=== PATIENT | male | born 1965 | race Caucasian/White ===

== ENCOUNTER 2024-04-18 20:19 | Observation (INO) ==
[2024-04-18 20:53] LABS: Appearance Urine Turbid (Clear)
[2024-04-18 20:56] LABS: Specific Gravity Urine 1.018 (1.000-1.030)
[2024-04-18 21:11] LABS: Bacteria Urine None Seen (None Seen); Epithelial Cell Urine 0-2 /hpf (0-2); RBC Urine >20 /hpf (0-2); WBC Urine 0-5 /hpf (0-5)
[2024-04-18 21:38] LABS: Albumin Globulin Ratio 1.9 (0.9-2); BUN Creatinine Ratio 20.6 (10-20); Calcium 9.7 mg/dl (8.6-10.3); Creatinine Clr Calc Pharmacy 93.9 ml/min; Globulin 2.6 gm/dl (2.5-4.0); Potassium 3.8 mmol/L (3.5-5.1); Total Protein 7.6 gm/dl (6.0-8.3)
[2024-04-18 21:56] LABS: Basophils # (auto) 0.03 K/uL (0.00-0.20); Basophils % (auto) 0.3 %; Eosinophils # (auto) 0.16 K/uL (0.00-0.50); Eosinophils % (auto) 1.8 %; Hematocrit (blood only) 43.9 % (42.0-52.0); Hemoglobin 15.6 g/dl (14.0-18.0); Immature Granulocytes # (auto) 0.03 K/uL (0.01-0.20); Immature Granulocytes % (auto) 0.3 %; Lymphocytes # (auto) 2.53 K/uL (1.20-3.40); Mean Corpuscular Hemoglobin 31.1 pg (25.0-34.0); Mean Corpuscular Hgb Conc 35.5 g/dL (32.0-36.0); Mean Corpuscular Volume 87.6 fL (80.0-100.0); Mean Platelet Volume 9.3 fL (9.4-12.4); Monocytes # (auto) 0.77 K/uL (0.11-0.59); Monocytes % (auto) 8.8 %; Neutrophils # (auto) 5.19 K/uL (1.40-6.50); Neutrophils % (auto) 59.8 %; Platelet Count 204 K/uL (130-400); RDW Coefficient of Variation 12.4 % (11.5-14.5); RDW Standard Deviation 38.8 fL (36.4-46.3); Red Blood Count 5.01 M/uL (4.70-6.10); White Blood Count 8.71 K/ul (4.8-10.8)
[2024-04-18] MEDS: SODIUM CHLORIDE 0.9% 1,000 ML IV ONE (22:35)
[2024-04-18 22:45] LABS: Partial Thromboplastin Ratio 0.9; Partial Thromboplastin Time 25 Seconds (21-31); Prothrombin Time 10.9 Seconds (9.0-12.0)
[2024-04-18] MEDS: OPTIRAY 320 100ml IV ONE (22:51)
--- NOTE | 2024-04-18 23:58 | Emergency Department Note ---
History of Present Illness General Chief complaint: Hematuria Stated complaint: hematuria Time Seen by Provider: 04/18/24 21:26 History of Present Illness Maximum Pain Intensity: 2 This 58-year-old male presents ER complaining of intermittent hematuria for the past few days. He has some lower abdominal discomfort. Patient has chest pain, dyspnea, flank pain, trauma, bruising or any other medical complaints. He had a stent placed 5 weeks ago at [place]. Home Medications Medication Instructions Recorded Confirmed Type aspirin 81 mg chewable tablet 81 mg PO DAILY 04/19/24 04/19/24 History atorvastatin 40 mg tablet 40 mg PO HS 04/19/24 04/19/24 History losartan 25 mg tablet 25 mg PO DAILY 04/19/24 04/19/24 History metoprolol succinate 50 mg 50 mg PO DAILY 04/19/24 04/19/24 History tablet,extended release 24 hr nitroglycerin 0.4 mg sublingual 0.4 mg sublingual UD PRN Chest Pain 04/19/24 04/19/24 History tablet ticagrelor 90 mg tablet (Brilinta) 90 mg PO BID 04/19/24 04/19/24 History Allergies Allergy/AdvReac Type Severity Reaction Status Date / Time No Known Allergies Allergy Unverified 10/21/19 09:55 Past Med/Surg History Problem List (Updated 04/19/24 @ 02:35 by Florina Ward PA-C) Hematuria (Acute) Mass of bladder (Acute) No significant past medical history Social History Smoking Status: Former smoker Preferred Language: Vietnamese Feels Safe at Home: Yes Review of Systems A total of 10 systems reviewed and were otherwise negative Physical Exam Vital Signs Vital Signs - 24 hr 04/18/24 20:22 04/18/24 22:32 04/18/24 22:33 Temperature 36.5 C Temperature Source Temporal Artery Scan Pulse Rate 82 Pulse Rate [Finger] 69 Respiratory Rate 16 16 Respiratory Effort / Characteristics Respiratory Depth Normal Respiratory Pattern Blood Pressure 163/97 H Blood Pressure [Right Arm] 133/87 Blood Pressure Mean 119 Blood Pressure Mean [Right Arm] 102 Pulse Oximetry 97 96 96 Oxygen Delivery Method Room Air Room Air Room Air Sepsis Recent Fever Within 48 Hours No Sepsis New/Unexplained Change in Mental Status No Sepsis Action Taken by Nursing No Action Required 04/18/24 23:00 04/19/24 00:00 04/19/24 01:00 Temperature Temperature Source Pulse Rate Pulse Rate [Finger] 60 55 L 58 L Respiratory Rate 16 18 18 Respiratory Effort / Characteristics Non-Labored Non-Labored Non-Labored Respiratory Depth Normal Normal Normal Respiratory Pattern Regular Regular Regular Blood Pressure Blood Pressure [Right Arm] 125/81 113/83 104/75 Blood Pressure Mean Blood Pressure Mean [Right Arm] 95 93 84 Pulse Oximetry 98 98 94 Oxygen Delivery Method Room Air Room Air Room Air Sepsis Recent Fever Within 48 Hours Sepsis New/Unexplained Change in Mental Status Sepsis Action Taken by Nursing 04/19/24 02:00 Temperature Temperature Source Pulse Rate Pulse Rate [Finger] 61 Respiratory Rate 16 Respiratory Effort / Characteristics Non-Labored Respiratory Depth Normal Respiratory Pattern Regular Blood Pressure Blood Pressure [Right Arm] 127/87 Blood Pressure Mean Blood Pressure Mean [Right Arm] 100 Pulse Oximetry 98 Oxygen Delivery Method Room Air Sepsis Recent Fever Within 48 Hours Sepsis New/Unexplained Change in Mental Status Sepsis Action Taken by Nursing VITALS: Vitals are noted on the nurse's note and reviewed by myself. Vital signs stable. GENERAL: Pleasant gentleman, in no acute distress, nondiaphoretic, well- developed well-nourished. SKIN: Capillary reflex less than 2 seconds. HEENT: Normocephalic. PERRLA. EOMI. Nares patent. Mucous membranes moist. Neck is supple without nuchal rigidity. HEART: Regular rate and rhythm LUNGS: Clear to auscultation bilaterally without wheezes, rales or rhonchi. No retractions or accessory muscle use. ABDOMEN: Positive bowel sounds x 4. Normal tympanic percussion. Soft, minimally tender suprapubic region, without masses or organomegaly. Greer sign negative. No guarding or rebound tenderness. no CVA tenderness MUSCULOSKELETAL: No gross musculoskeletal defects. NEURO: Patient was alert and oriented to person place and time. No focal neurological deficits. Course Administered Medications Discontinued Medications Sodium Chloride (Nss) 1,000 mls @ 999 mls/hr IV .Q1H1M ONE Stop: 04/18/24 22:47 Last Infusion: 04/19/24 00:06 Dose: Infused Documented By: Admin: 04/18/24 22:35 Dose: 999 mls/hr Documented By: UMESH Ioversol (Optiray 320 100ml) 100 ml IV ONCE ONE Stop: 04/18/24 22:51 Last Admin: 04/18/24 22:51 Dose: 93 ml Documented By: FATIMAH Medical Decision Making Medical Records Attestation: I reviewed the patient's medical records. Home Medications Current Medication List: was personally reviewed by me Laboratory Data Attestation: I reviewed the patient's lab results. 04/18/24 20:47 04/18/24 20:47 Lab Results 04/18/24 04/18/24 Range/Units 20:41 20:47 WBC 8.71 (4.8-10.8) K/ul RBC 5.01 (4.70-6.10) M/uL Hgb 15.6 (14.0-18.0) g/dl Hct 43.9 (42.0-52.0) % MCV 87.6 (80.0-100.0) fL MCH 31.1 (25.0-34.0) pg MCHC 35.5 (32.0-36.0) g/dL RDW Std Deviation 38.8 (36.4-46.3) fL RDW Coeff of Sarthak 12.4 (11.5-14.5) % Plt Count 204 (130-400) K/uL MPV 9.3 L (9.4-12.4) fL Immature Gran % (Auto) 0.3 % Neut % (Auto) 59.8 % Lymph % (Auto) 29.0 % [place] % (Auto) 8.8 % Eos % (Auto) 1.8 % Baso % (Auto) 0.3 % Neut # (Auto) 5.19 (1.40-6.50) K/uL Lymph # (Auto) 2.53 (1.20-3.40) K/uL [place] # (Auto) 0.77 H (0.11-0.59) K/uL Eos # (Auto) 0.16 (0.00-0.50) K/uL Baso # (Auto) 0.03 (0.00-0.20) K/uL Immature Gran # (Auto) 0.03 (0.01-0.20) K/uL PT 10.9 (9.0-12.0) Seconds INR 1.0 (0.9-1.1) APTT 25 (21-31) Seconds PTT Ratio 0.9 Sodium 139 (136-145) mmol/L Potassium 3.8 (3.5-5.1) mmol/L Chloride 106 (98-107) mmol/L Carbon Dioxide 23 (21-32) mmol/L Anion Gap 10 (3-11) BUN 20 (6-23) mg/dl Creatinine 0.97 (0.6-1.4) mg/dl Est Cr Clr Drug Dosing 93.9 ml/min eGFR 91.05 BUN/Creatinine Ratio 20.6 H (10-20) Glucose 98 (70-99(Fasting)) mg/dl Calcium 9.7 (8.6-10.3) mg/dl Total Bilirubin 1.0 (0.2-1.0) mg/dl AST 43 H (13-39) U/L ALT 71 H (7-52) U/L Alkaline Phosphatase 58 (34-104) U/L Total Creatine Kinase 393 H (30-223) U/L Total Protein 7.6 (6.0-8.3) gm/dl Albumin 5.0 (3.4-5.0) gm/dl Globulin 2.6 (2.5-4.0) gm/dl Albumin/Globulin Ratio 1.9 (0.9-2) Lipase 10 L (11-82) U/L Urine Color See Comment Urine Appearance Turbid A (Clear) Urine pH Not Reportable Ur Specific [place] 1.018 (1.000-1.030) Urine Protein Not Reportable Urine Glucose (UA) Not Reportable Urine Ketones Not Reportable Urine Blood Not Reportable Urine Nitrite Not Reportable Urine Bilirubin Not Reportable Urine Urobilinogen Not Reportable Ur Leukocyte Esterase Not Reportable Urine RBC >20 H (0-2) /hpf Urine WBC 0-5 (0-5) /hpf Ur Epithelial Cells 0-2 (0-2) /hpf Urine Bacteria None Seen (None Seen) Imaging Data Attestation: I personally reviewed and interpreted this imaging study as follows: Radiologist's Impression: Abdomen/Pelvis CT 04/18/24 21:47 Exam(s): CT ABDOMEN + PELVIS With Contrast IV Amt: 93 ML OPTIRAY 320 EXAM: CT Abdomen and Pelvis With Intravenous Contrast CLINICAL HISTORY: Reason for exam: lower abd pain, hematuria. TECHNIQUE: Axial computed tomography images of the abdomen and pelvis with intravenous contrast. CTDI is 25.29 mGy and DLP is 1304.69 mGy-cm. Automated exposure control was utilized for the study. A dose lowering technique was utilized adhering to the principles of ALARA. CONTRAST: Patient received 93 ML OPTIRAY 320 of IV contrast COMPARISON: No relevant prior studies available. FINDINGS: Lung bases: Unremarkable. No mass. No consolidation. ABDOMEN: Liver: Unremarkable. No mass. Gallbladder and bile ducts: Unremarkable. No calcified stones. No ductal dilation. Pancreas: Unremarkable. No mass. No ductal dilation. Spleen: Unremarkable. No splenomegaly. Adrenals: Unremarkable. No mass. Kidneys and ureters: Unremarkable. No solid mass. No hydronephrosis. Stomach and bowel: Unremarkable. No obstruction. No mucosal thickening. PELVIS: Appendix: The appendix is normal. Bowel loops are nondilated. No acute inflammatory changes are seen involving the bowel. Bladder: There is an approximately 2.9 cm soft tissue density in the right posterior lateral urinary bladder abutting the wall. Reproductive: Unremarkable as visualized. ABDOMEN and PELVIS: Intraperitoneal space: Unremarkable. No free air. No significant fluid collection. Bones/joints: Mild degenerative changes in the spine. No acute fracture or subluxation is seen. Soft tissues: Unremarkable. Vasculature: Unremarkable. No abdominal aortic aneurysm. Lymph nodes: Unremarkable. No enlarged lymph nodes. IMPRESSION: 1. There is an approximately 2.9 cm soft tissue density in the right posterior lateral urinary bladder abutting the wall. This is suspicious for neoplasm but is not well evaluated on this single phase image. Consider referral for cystoscopy. 2. The appendix is normal. Bowel loops are nondilated. No acute inflammatory changes are seen involving the bowel. Electronically signed by: Robin Dunham MD 04/19/24 01:55 AM [facility] Narrative Prior records/ancillary studies reviewed and summarized above. Nursing notes reviewed. Additional history obtained from family. The patient's history was concerning for hematuria and lower abdominal cramping. Differential diagnosis: Etiologies such as kidney stone, bladder polyp, mass, metabolic, infection, hypo/hyperglycemia, electrolyte abnormalities, cardiac sources, intracerebral event, toxicologic, neurologic, as well as others were entertained. Physical examination: As above. ER treatment provided: IV Lock An order was placed for continuous cardiac monitoring. The monitor shows a rate of 60-100 with a sinus rhythm per my interpretation. IV fluids On reassessment the patient felt better. Diagnostics interpretation by me: The labs Independently Interpreted by myself revealed no worrisome leukocytosis, stable H&H, normal coags, hematuria without signs of infection Imaging studies: Imaging was reviewed and read by radiology as above Consultation: A consultation was placed with the hospitalist. The case was discussed and diagnostics were reviewed. The patient was evaluated in the ER for further treatment. Exam and history seem consistent with hematuria with a new bladder mass. Medicine was consulted case discussed. He will be evaluated for possible admission. By the evaluation outlined above emergent etiologies such as infection, electrolyte abnormalities, cardiac sources, intracerebral event, toxologic, neurologic, abnormalities blood glucose, metabolic, as well as others were deemed relatively unlikely. The pt informed about the findings as listed above. All questions were answered and pleased with the treatment. The chart was completed utilizing Py[employer] Speech voice recognition software. Grammatical errors, random word insertions, pronoun errors, and incomplete sentences are an occassional consequence of this system due to software limitations, ambient noise, and hardware issues. Any formal questions or concerns about the content, text, or information contained within the body of this dictation should be directly addressed to the physician family medicine physician assistant for clarification. Impression & Plan Mass of bladder, Hematuria Discharge Plan Visit Data Chief Complaint: Hematuria Stated Complaint: hematuria ED Provider: Deb Ahn ED Midlevel Provider: Florina Ward Discharge Problem: Mass of bladder, Hematuria Patient Disposition: Being Evaluated by Hospitalist Condition: Good Forms Stand Alone Forms: My [facility] [employer] Prescriptions Prescriptions: No Action atorvastatin 40 mg tablet 40 mg PO HS metoprolol succinate 50 mg tablet extended release 24 hr 50 mg PO DAILY losartan 25 mg tablet 25 mg PO DAILY Brilinta 90 mg tablet 90 mg PO BID nitroglycerin 0.4 mg tablet, sublingual 0.4 mg sublingual UD PRN (Reason: Chest Pain) aspirin 81 mg tablet,chewable 81 mg PO DAILY Referrals Referrals: PCP,NO [Primary Care Provider] -
--- OUTSIDE RECORDS SUMMARY | 2024-04-19 | External Medical Summary | Continuity of Care Document ---
Author Name Unknown Organization [facility] [address] [place] [id number] Encounter PS FINNBR [id number] Date(s): 03/13/24 - 03/13/24 [facility] [address] [facility] [address], [address], [address] [place] [address] [phone] Encounter Diagnosis Coronary artery disease(Discharge Diagnosis) - 03/13/24 Hyperlipidemia(Discharge Diagnosis) - 03/13/24 Hypertension(Discharge Diagnosis) - 03/13/24 S/P right coronary artery (RCA) stent placement(Discharge Diagnosis) - 03/13/24 Smoker(Discharge Diagnosis) - 03/13/24 Body mass index [BMI] 31.0-31.9, adult(Discharge Diagnosis) - 03/13/24 Discharge Disposition: Home or Self Care Attending Physician: JUDY Warner Allison E Referring Physician: NORMAN Key Nathan T Allergies, Adverse Reactions, Alerts No Known Allergies Assessment and Plan Extracted from: Title:Cardiology Office Visit Note Author:JUDY Mercado Allison E Date:03/13/24 1.Coronary artery disease 2.Hyperlipidemia 3.Hypertension 4.S/P right coronary artery (RCA) stent placement 5.Smoker Mr. Higgins is overall recovering well after his recent RI. He has not had any recurrent concerning anginal symptoms. We reviewed the events of his hospitalization and medication regimen. He remains on DAPT with aspirin and ticagrelor for 1 full year after PCI. We reviewed his LDL goal of <70 and the importance of atorvastatin for cholesterol management and plaque stabilization. His blood pressure is at goal on losartan and metoprolol succinate. He is having a f/u BMP in the coming days near his home. We discussed lifestyle modifications including smoking cessation, diet and exercise. He has quit smoking thus far. 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 He wishes to have this done at our [place] location. I will call him with the results of this and can complete any necessary paperwork. 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 Going forward, he will follow up in 4-5 months time to establish care at our [place] location but will call with questions or concerns in the interim. I spent35 minutes of preparation, performing a medically appropriate exam, counseling/educating the patient/family, ordering medications/tests/procedures, independently interpreting results and coordinating care on the day of this encounter. 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, Pharmacy: [id number] Start Date: 03/13/24 Stop Date: 03/08/25 Status: Ordered losartan 25 mg oral tablet Start: 03/13/24 4:08:00 PM EST, 1 tab, PO, Daily, Disp# 90 tab, Refills: 3, Pharmacy: [id number] Start Date: 03/13/24 Stop Date: 03/08/25 Status: Ordered metoprolol succinate 50 mg oral tablet, extended release Start: 03/13/24 4:08:00 PM EST, 1 tab, PO, Daily, Disp# 90 tab, Refills: 3, Pharmacy: [id number] Start Date: 03/13/24 Stop Date: 03/08/25 Status: Ordered nitroglycerin 0.4 mg sublingual tablet Start: 03/08/24 7:06:00 AM EST, 1 tab, SL, q5min, Disp# 25 tab, Refills: 3, If chest pain not relieved in 5 minutes after first dose, seek immediate medical attention, PRN: as needed for chest pain, Pharmacy: [facility] Start Date: 03/08/24 Status: Ordered Mental Status 03/13/24 Barriers to Learning one year None evide nt, Vision impairment Mandatory Health Literacy Documentation Yes Health Literacy Communication Barriers R tiny Primary Language Norwegian Problem List Condition Confirmation Course Effective Dates Status H ealth Status Informant Coronary artery disease Confirmed Active S/P right coronary artery (RCA) stent placement Confirmed Active Hyperlipidemia Confirmed Active Hypertension Confirmed Active Smoker Confirmed Active Diagnosis Diagnosis Type Effective Dates Health Status Clinical Service Informant Coronary artery disease Discharge Diagnosis 03/13/24 Non-Specified Hypertension Discharge Diagnosis 03/13/24 Non-Specified Body mass index [BMI] 31.0-31.9, adult Discharge Diagnosis 03/13/24 Non-Specified Hyperlipidemia Discharge Diagnosis 03/13/24 Non-Specified Smoker Discharge Diagnosis 03/13/24 Non-Specified S/P right coronary artery (RCA) stent placement Discharge Diagnosis 03/13/24 Non-Specified Procedures Procedure Date Related Diagnosis Body Site Status Stented coronary artery C ompleted Vital Signs Most recent to oldest [Reference Range]: 1 Height 173 cm (03/13/24 3:51 PM) Patient Weight 95.4 kg (03/13/24 3:51 PM) Body Mass Index 31.88 kg/m2 (03/13/24 3:51 PM) Temperature [36.5-37.9 DegC] 35.9 DegC *LOW* (03/13/24 3:51 PM) Heart Rate 78 bpm (03/13/24 3:51 PM) Blood Pressure 122/80mmHg (03/13/24 3:51 PM) BP Location # 1 Left Arm, Manual (03/13/24 3:51 PM) Social History Social History Type Response Smoking Status Former Smoker, quit in last 30 days Sex Sex Representation Male (finding) Cardiology Outpatient Note * JUDY Warner Allison E: MODIFY, PERFORM Event Display: Cardiology Outpt Note Authored Date: [id number] Referring Provider NORMAN Key, Damien Kaplan Chief Complaint Follow up after stent. History of Present Illness Mr. Higgins is a 58-year-old male with past medical history of tobacco abuse who presented to the [facility] ED on 03/04/2024 due to complaints of left arm pain and radiating chest pain. EKGdid not show any acute changes but troponins were found to be elevated. TTE revealed normal LV function with an EF 55-59%. He was started on a heparin drip and transported to [facility] on 03/06/2024for further management. He was taken for coronary angiography on 03/07/2024 which revealed a 100% RPDA lesion in which 1 drug-eluting stent was placed. There was nonobstructive CAD in the other coronaries. He was started on Aspirin and ticagrelor for DAPT as well as atorvastatin, losartan, and met oprolol. He was discharged in stable condition on 03/08/2024. At today's visit, Mr. Higgins reports he is overall doing well. He denies recurrent arm or chest pain. He has not had any tobacco since discharge. He is tolerating his new medications without adverse effects. Review of Systems Denies chest pain/pressure, palpitations, dizziness/lightheadedness, shortness of breath, dyspnea on exertion, orthopnea, increased abdominal girth, LE edema, or hematuria/melena. All other systemsnegative unless otherwise specified. Physical Exam Vitals & Measurements T:35.9C HR:78(Monitored) BP:122/80 SpO2:99% HT:173cm WT:95.400kg(Dosing) WT:95.4kg BMI:31.88 BMI:31.88 kg/m2 He is pleasant, conversive and presents in no acute distress.He is alert and oriented x 3. His sclera were anicteric.Neckwithout JVD.He had no carotid bruits.Heart rate regular withS1 and S2 present, with no murmurs/rubs/gallops. Lungs were clear to auscultation bilaterally. Abdomen was soft, nontender, nondistended with positive bowel sounds. Peripheral pulses were +2 and equal in all extremities. Thereis no lower extremityedema. Skin is warm, dry, and intact. Radial cath site with positive distal pulse and is without edema or ecchymosis. Diagnostic Results Cardiac catheterization 03/07/2024: RCA: The 100%, 22 mm long Right PDA lesion was treated with a Guidewire Runthrough NS Floppy Tip .014 mm x 180 cm, SC Euphora RX Balloon 2.5 mm x 12 mm, Catheter 6FR x 100cm IR1 Curve with flexibleshaft, ASAHI DORYS BLUE GUIDEWIRE 0.014" X 190CM STRT TIP, Catheter IVUS [place] [facility] 24 cm RX 150 cm, CARLIE FRONTIER STENT RX [id number], NC Euphora RX Balloon 3.25 mm x 12 mm, Guidewire Runthrough NS Floppy Tip .014 mm x 180 cm and Catheter IVUS [place] [facility] 24 cm RX 150 cm. Post intervention stenosis was 0% with ELISE III flow. Coronary Dominance: Right [1] TTE @ OSH: Transthoracic echocardiogram was performed, which revealed a qualitative LV ejection fraction of 55-59% (normal). The LV wall thickness is mildly increased (concentric), trivial tricuspid regurgitation, and the right ventricular sizer and systolic function is normal Normal IVC size and collapsibility with sniff indicates a normal right atrial pressure of 3 mmHg. Assessment/Plan 1.Coronary artery disease 2.Hyperlipidemia 3.Hypertension 4.S/P right coronary artery (RCA) stent placement 5.Smoker Mr. Higgins is overall recovering well after his recent RI. He has not had any recurrent concerning anginal symptoms. We reviewed the events of his hospitalization and medication regimen. He remains on DAPT with aspirin and ticagrelor for 1 full year after PCI. We reviewed his LDL goal of <70 and the importance of atorvastatin for cholesterol management and plaque stabilization. His blood pressure is at goal on losartan and metoprolol succinate. He is having a f/u BMP in the coming days near his home. We discussed lifestyle modifications including smoking cessation, diet and ex ercise. He has quit smoking thus far. 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 He wishes to have this done at our [place] location. I will call him with the results of this and can complete any necessary quang rwork. 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 Going forward, he will follow up in4-5 months time to establish care at our [place] location but will call with questions or concerns in the interim. I spent35 minutes of preparation, performing a medically appropriate exam, counseling/educating the patient/family, ordering medications/tests/procedures, independently interpreting results and coordinating care on the day of this encounter. Problem List/Past Medical History Ongoing Coronary artery disease Hyperlipidemia Hypertension S/P right coronary artery (RCA) stent placement Smoker Procedure/Surgical History Stented coronary artery Medications aspirin(aspirin 81 mg oral tablet, chewable), 81 mg= 1 tab, PO, Daily, 11 refills atorvastatin(atorvastatin 40 mg oral tablet), 40 mg= 1 tab, PO, qhs, 11 refills losartan(losartan 25 mg oral tablet), 25 mg= 1 tab, PO, Daily, 11 refills metoprolol(metoprolol succinate 50 mg oral tablet, extended release), 50 mg= 1 tab, PO, Daily, 11 refills nitroglycerin(nitroglycerin 0.4 mg sublingual tablet), 0.4 mg= 1 tab, SL, q5min, PRN, 3 refills ticagrelor(Brilinta (ticagrelor) 90 mg oral tablet), 90 mg= 1 tab, PO, bid, 11 refills Allergies NKA Social History Smoking Status Former Smoker, quit in last 30 days [1]Cardiac Cath; MD Truong Aaron 03/07/2024 11:55 EST Electronic Signature on File Electronically Reviewed/Signed by: JUDY Owen Author Signature Dt/Tm:03/14/2024 01:50PM [facility] Patient Care team information Care Team Personnel Name: Janna Malone Michael Position: Pharmacist Member Role: Pharmacy - Lifetime
--- OUTSIDE RECORDS SUMMARY | 2024-04-19 | External Medical Summary | Summary of Care ---
Author Name Unknown Organization [facility] [address] [place] [address] Phone [phone] Care Team Providers Care Cyber Defense Forensics Analyst Name Role Phone Unavailable Primary Care Provider Unavailabl e Reason for Visit * Reason Onset Date Comments Cardiac Rehab 04/02/2024 Encounter Details Date Type Department Care Team (Late st Contact Info) Description 04/02/2024 Telephone Cardiac Rehab, [address] [phone] Gladys Schmidt scheduling agent Allergies No known active allergiesdocumented as of this encounter (statuses as of 04/02/2024) Medications No known medicationsdocumented as of this encounter (statuses as of 04/02/2024) Active Problems Problem Noted Date Diagnosed Date Family history of premature CAD 03/05/2024 NSTEMI (non-ST elevated myocardial infarction) 1 05/05/2023 Tobacco use 03/04/2024 documented as of this encounter (statuses as of 04/02/2024) Social History Tobacco Use Types Packs/Day Years Used Date Smoking Tobacco: Every Day Cigarettes 0.5 45 Started: 04/03/1979 Smokeless Tobacco: Current Chew Alcohol Use Standard Drinks/Week Comments Never 0 (1 standard drink = 0.6 oz pur e alcohol) Sex and Gender Information Value Date Recorded Sex Assigned at Not on file Legal Sex Male 5:16 AM EST Gender Identity Not on file Sexual Orientation Not on file documented as of this encounter Functional Status * Are you deaf or do you have serious difficulty hearing? Answer Date of Assessment Author No 03/04/2024 6:16 PM EST Duc Pal RN * Are you blind or do you have serious difficulty seeing, even when wearing glasses? Answer Date of Assessment Author No 03/04/2024 6:16 PM Duc Rider RN * Do you have serious difficulty walking or climbing stairs? (5 years old or older) Answer Date of Assessment Author No 03/04/2024 6:16 PM Duc Rider RN * Do you have difficulty dressing or bathing? (5 years old or older) Answer Date of Assessment Author No 03/04/2024 6:16 PM Duc Rider RN * Because of a physical, mental, or emotional condition, do you have difficulty doing errands alone such as visiting a doctors office or shopping? (15 years old or older) Answer Date of Assessment Author No 03/04/2024 6:16 PM Dcu Rider RN documented as of this encounter Mental Status * Because of a physical, mental, or emotional condition, do you have serious difficulty concentrating, remembering, or making decisions? (5 years old or older) Answer Entry Date Author No 03/04/2024 6:16 PM Duc Rider RN documented in this encounter Miscellaneous Notes * Telephone Encounter - Gladys Schmidt RN - 04/02/2024 10:32 AM EST Referral to Cardiac Rehab f/u: reviewed pt chart; several unsuccessful attempts have been made to talk to patient or leave a message. Sent letter introducing [facility] Cardiac Rehab service & provided with phone number to contact [facility] Cardiac Rehab if interested in learning more about the program. documented in this encounter Plan of Treatment Health Maintenance Due Date Last Done Comments DISCUSS TOBACCO CESSATION (REFER TO SMARTSET #4702) 1966 Depression Screening 1978 HIV Screening 1981 Hepatitis C Screening 1984 DTap/Tdap Vaccines (1 - Tdap) 1985 Hepatitis B Vaccine (1 of 3 - 19+ 3-dose series) 1985 Pneumococcal Vaccine: 50+ Years (1 of 2 - PCV) 1985 Cologuard 11/15/2011 Colonoscopy 11/15/2011 Colorectal Cancer Screening 11/15/2011 Fecal Occult Blood Test 11/15/2011 Sigmoidoscopy 11/15/2011 Lung Cancer Screening 2016 Zoster Vaccines (1 of 2) 2016 COVID-19 Vaccine ( - season) 2023 Influenza Vaccine (FLU shot) (#1) 2023 Diabetes Screening 03/06/2027 03/06/2024, 1 05/06/2023, 03/05/2024, Additional history exists Lipid Panel 03/05/2029 03/05/2024, 06/2023, 03/05/2024 HPV (Gardasil) Vaccine Aged Out No lo nger eligible based on patient's age to complete this topic MENINGOCOCCAL (MENACTRA/MENVEO) Aged Out No longer eligible based on patient's age to complete this topic documented as of this encounter Medical Devices Not on filedocumented as of this encounter Advance Directives * Full Code (Latest Code Status on File) Date Activated Date Inactivated Comments 03/04/2024 5:24 PM 03/06/2024 8:00 PM This order r eflects the patients wishes and were consensually agreed upon. Question Answer Comments Discussion of Advance Directives occurred with: Patient
--- NOTE | 2024-04-19 01:57 | CT Scan Report ---
Exam(s): CT ABDOMEN + PELVIS With Contrast IV Amt: 93 ML OPTIRAY 320 EXAM: CT Abdomen and Pelvis With Intravenous Contrast CLINICAL HISTORY: Reason for exam: lower abd pain, hematuria. TECHNIQUE: Axial computed tomography images of the abdomen and pelvis with intravenous contrast. CTDI is 25.29 mGy and DLP is 1304.69 mGy-cm. Automated exposure control was utilized for the study. A dose lowering technique was utilized adhering to the principles of ALARA. CONTRAST: Patient received 93 ML OPTIRAY 320 of IV contrast COMPARISON: No relevant prior studies available. FINDINGS: Lung bases: Unremarkable. No mass. No consolidation. ABDOMEN: Liver: Unremarkable. No mass. Gallbladder and bile ducts: Unremarkable. No calcified stones. No ductal dilation. Pancreas: Unremarkable. No mass. No ductal dilation. Spleen: Unremarkable. No splenomegaly. Adrenals: Unremarkable. No mass. Kidneys and ureters: Unremarkable. No solid mass. No hydronephrosis. Stomach and bowel: Unremarkable. No obstruction. No mucosal thickening. PELVIS: Appendix: The appendix is normal. Bowel loops are nondilated. No acute inflammatory changes are seen involving the bowel. Bladder: There is an approximately 2.9 cm soft tissue density in the right posterior lateral urinary bladder abutting the wall. Reproductive: Unremarkable as visualized. ABDOMEN and PELVIS: Intraperitoneal space: Unremarkable. No free air. No significant fluid collection. Bones/joints: Mild degenerative changes in the spine. No acute fracture or subluxation is seen. Soft tissues: Unremarkable. Vasculature: Unremarkable. No abdominal aortic aneurysm. Lymph nodes: Unremarkable. No enlarged lymph nodes. IMPRESSION: 1. There is an approximately 2.9 cm soft tissue density in the right posterior lateral urinary bladder abutting the wall. This is suspicious for neoplasm but is not well evaluated on this single phase image. Consider referral for cystoscopy. 2. The appendix is normal. Bowel loops are nondilated. No acute inflammatory changes are seen involving the bowel. Electronically signed by: Robin Dunham MD 04/19/24 01:55 AM
--- NOTE | 2024-04-19 03:35 | History & Physical Report ---
Date of Service April 19, 2024 Assessment & Plan (1) Hematuria: Plan: 58-year-old male with past med history significant for recent non-ST elevated ND status post RCA stent, tobacco use, family history of premature CAD presents with hematuria. Patient states since last Monday afternoon was having hematuria and seemed stopped yesterday but again today morning started to have hematuria and so came to the ER. Denies any burning micturition. No abdominal pain. Normal bowel movements. Denies any chest pain or shortness of breath. No nausea or vomiting. No headache or dizziness. No runny nose or sore throat. No cough. No fevers. Ambulating okay. Hemodynamics are okay. Patient recently was admitted to [facility] on 03/04/2024 for non-ST elevated ND. His echo was okay. As there was no bed availability at [place] he was transferred to [facility] on 03/06/2024. Seems patient had cardiac cath on 03/07/2024 and status post right RCA stent and was discharged on 03/08/2024.Patient states he is compliant with his medications. Hematuria Hemodynamics stable Hemoglobin stable at 15.6 Bladder mass 2.9 cm soft tissue density in the right posterior lateral urinary bladder abutting the wall ,suspicious for neoplasm as per CAT scan Will keep him n.p.o., IV fluids Consult urology in a.m. for further recommendations Recent non-ST elevated ND Status post stent to RCA Will continue aspirin and Brilinta statin and beta-jarrett Hypertension On losartan and metoprolol succinate We will monitor DVT prophylaxis SCDs Disposition Med/telemetry Full code. History of Present Illness Chief Complaint: Hematuria Primary Care Provider: NO PCP 58-year-old male with past med history significant for recent non-ST elevated ND status post RCA stent, tobacco use, family history of premature CAD presents with hematuria. Patient states since last Monday afternoon was having hematuria and seemed stopped yesterday but again today morning started to have hematuria and so came to the ER. Denies any burning micturition. No abdominal pain. Normal bowel movements. Denies any chest pain or shortness of breath. No nausea or vomiting. No headache or dizziness. No runny nose or sore throat. No cough. No fevers. Ambulating okay. Hemodynamics are okay. Patient rece ntly was admitted to [facility] on 03/04/2024 for non-ST elevated ND. His echo was okay. As there was no bed availability at [place] he was transferred to [facility] on 03/06/2024. Seems patient had cardiac cath on 03/07/2024 and status post right RCA stent and was discharged on 03/08/2024.Patient states he is compliant with his medications. Past medical history. As mentioned above Past surgical history. Cardiac cath and stent placement Social history. Smokes 0.5 packs a day for last 45 years. No alcohol use. No drug use. Family history. History of ND Brother and father. Allergies Allergy/AdvReac Type Severity Reaction Status Date / Time No Known Allergies Allergy Unverified 10/21/19 09:55 Home Medications Medication Instructions Recorded Confirmed Type aspirin 81 mg chewable tablet 81 mg PO DAILY 04/19/24 04/19/24 History atorvastatin 40 mg tablet 40 mg PO HS 04/19/24 04/19/24 History losartan 25 mg tablet 25 mg PO DAILY 04/19/24 04/19/24 History metoprolol succinate 50 mg 50 mg PO DAILY 04/19/24 04/19/24 History tablet,extended release 24 hr nitroglycerin 0.4 mg sublingual 0.4 mg sublingual UD PRN Chest Pain 04/19/24 04/19/24 History tablet ticagrelor 90 mg tablet (Brilinta) 90 mg PO BID 04/19/24 04/19/24 History Past Med/Surg History Problem List (Updated 04/19/24 @ 02:35 by Florina Ward PA-C) Hematuria (Acute) Mass of bladder (Acute) No significant past medical history Social History Smoking Status: Former smoker Preferred Language: Pakistani Feels Safe at Home: Yes Review of Systems Review of Systems: All systems reviewed & are unremarkable except as noted in HPI & below Physical Exam Physical Exam: General- Not in distress Head- atraumatic Eyes- PERRL. ENT- oropharynx clear Neck- supple, no JVD. Lungs- clear to auscultation no wheezing or crackles Heart- regular rhythm; no murmur, no gallop. Abdomen- normal bowel sounds, soft, nontender, no distension Extremities- no pretibial edema, no erythema seen Neuro- alert, oriented PERRL, no facial palsy; no dysarthria; moves extremities Results & Data Results & Data Vital Signs (Past 12 Hours) Vital Signs Temp Pulse Pulse Resp BP BP Pulse Ox 04/19/24 03:00 75 16 125/77 96 04/19/24 02:00 61 16 127/87 98 04/19/24 01:00 58 L 18 104/75 94 04/19/24 00:00 55 L 18 113/83 98 04/18/24 23:00 60 16 125/81 98 04/18/24 22:33 69 16 133/87 96 04/18/24 22:32 96 04/18/24 20:22 36.5 C 82 16 163/97 H 97 O2 Del Method 04/19/24 03:00 Room Air 04/19/24 02:00 Room Air 04/19/24 01:00 Room Air 04/19/24 00:00 Room Air 04/18/24 23:00 Room Air 04/18/24 22:33 Room Air 04/18/24 22:32 Room Air 04/18/24 20:22 Room Air Diagnostic Findings Laboratory Results WBC 8.71 K/ul (4.8-10.8) 04/18/24 20:47 RBC 5.01 M/uL (4.70-6.10) 04/18/24 20:47 Hgb 15.6 g/dl (14.0-18.0) 04/18/24 20:47 Hct 43.9 % (42.0-52.0) 04/18/24 20:47 MCV 87.6 fL (80.0-100.0) 04/18/24 20:47 MCH 31.1 pg (25.0-34.0) 04/18/24 20:47 MCHC 35.5 g/dL (32.0-36.0) 04/18/24 20:47 RDW Std Deviation 38.8 fL (36.4-46.3) 04/18/24 20:47 RDW Coeff of Sarthak 12.4 % (11.5-14.5) 04/18/24 20:47 Plt Count 204 K/uL (130-400) 04/18/24 20:47 MPV 9.3 fL (9.4-12.4) L 04/18/24 20:47 Immature Gran % (Auto) 0.3 % 04/18/24 20:47 Neut % (Auto) 59.8 % 04/18/24 20:47 Lymph % (Auto) 29.0 % 04/18/24 20:47 Bullock % (Auto) 8.8 % 04/18/24 20:47 Eos % (Auto) 1.8 % 04/18/24 20:47 Baso % (Auto) 0.3 % 04/18/24 20:47 Neut # (Auto) 5.19 K/uL (1.40-6.50) 04/18/24 20:47 Lymph # (Auto) 2.53 K/uL (1.20-3.40) 04/18/24 20:47 Bullock # (Auto) 0.77 K/uL (0.11-0.59) H 04/18/24 20:47 Eos # (Auto) 0.16 K/uL (0.00-0.50) 04/18/24 20:47 Baso # (Auto) 0.03 K/uL (0.00-0.20) 04/18/24 20:47 Immature Gran # (Auto) 0.03 K/uL (0.01-0.20) 04/18/24 20:47 PT 10.9 Seconds (9.0-12.0) 04/18/24 20:47 INR 1.0 (0.9-1.1) 04/18/24 20:47 APTT 25 Seconds (21-31) 04/18/24 20:47 PTT Ratio 0.9 04/18/24 20:47 Sodium 139 mmol/L (136-145) 04/18/24 20:47 Potassium 3.8 mmol/L (3.5-5.1) 04/18/24 20:47 Chloride 106 mmol/L (98-107) 04/18/24 20:47 Carbon Dioxide 23 mmol/L (21-32) 04/18/24 20:47 Anion Gap 10 (3-11) 04/18/24 20:47 BUN 20 mg/dl (6-23) 04/18/24 20:47 Creatinine 0.97 mg/dl (0.6-1.4) 04/18/24 20:47 Est Cr Clr Drug Dosing 93.9 ml/min 04/18/24 20:47 eGFR 91.05 04/18/24 20:47 BUN/Creatinine Ratio 20.6 (10-20) H 04/18/24 20:47 Glucose 98 mg/dl (70-99(Fasting)) 04/18/24 20:47 Calcium 9.7 mg/dl (8.6-10.3) 04/18/24 20:47 Total Bilirubin 1.0 mg/dl (0.2-1.0) 04/18/24 20:47 AST 43 U/L (13-39) H 04/18/24 20:47 ALT 71 U/L (7-52) H 04/18/24 20:47 Alkaline Phosphatase 58 U/L (34-104) 04/18/24 20:47 Total Creatine Kinase 393 U/L (30-223) H 04/18/24 20:47 Total Protein 7.6 gm/dl (6.0-8.3) 04/18/24 20:47 Albumin 5.0 gm/dl (3.4-5.0) 04/18/24 20:47 Globulin 2.6 gm/dl (2.5-4.0) 04/18/24 20:47 Albumin/Globulin Ratio 1.9 (0.9-2) 04/18/24 20:47 Lipase 10 U/L (11-82) L 04/18/24 20:47 Urine Color See Comment 04/18/24 20:41 Urine Appearance Turbid (Clear) A 04/18/24 20:41 Urine pH Not Reportable 04/18/24 20:41 Ur Specific Ringold 1.018 (1.000-1.030) 04/18/24 20:41 Urine Protein Not Reportable 04/18/24 20:41 Urine Glucose (UA) Not Reportable 04/18/24 20:41 Urine Ketones Not Reportable 04/18/24 20:41 Urine Blood Not Reportable 04/18/24 20:41 Urine Nitrite Not Reportable 04/18/24 20:41 Urine Bilirubin Not Reportable 04/18/24 20:41 Urine Urobilinogen Not Reportable 04/18/24 20:41 Ur Leukocyte Esterase Not Reportable 04/18/24 20:41 Urine RBC >20 /hpf (0-2) H 04/18/24 20:41 Urine WBC 0-5 /hpf (0-5) 04/18/24 20:41 Ur Epithelial Cells 0-2 /hpf (0-2) 04/18/24 20:41 Urine Bacteria None Seen (None Seen) 04/18/24 20:41 Impressions Abdomen/Pelvis CT 04/18/24 21:47 Exam(s): CT ABDOMEN + PELVIS With Contrast IV Amt: 93 ML OPTIRAY 320 EXAM: CT Abdomen and Pelvis With Intravenous Contrast CLINICAL HISTORY: Reason for exam: lower abd pain, hematuria. TECHNIQUE: Axial computed tomography images of the abdomen and pelvis with intravenous contrast. CTDI is 25.29 mGy and DLP is 1304.69 mGy-cm. Automated exposure control was utilized for the study. A dose lowering technique was utilized adhering to the principles of ALARA. CONTRAST: Patient received 93 ML OPTIRAY 320 of IV contrast COMPARISON: No relevant prior studies available. FINDINGS: Lung bases: Unremarkable. No mass. No consolidation. ABDOMEN: Liver: Unremarkable. No mass. Gallbladder and bile ducts: Unremarkable. No calcified stones. No ductal dilation. Pancreas: Unremarkable. No mass. No ductal dilation. Spleen: Unremarkable. No splenomegaly. Adrenals: Unremarkable. No mass. Kidneys and ureters: Unremarkable. No solid mass. No hydronephrosis. Stomach and bowel: Unremarkable. No obstruction. No mucosal thickening. PELVIS: Appendix: The appendix is normal. Bowel loops are nondilated. No acute inflammatory changes are seen involving the bowel. Bladder: There is an approximately 2.9 cm soft tissue density in the right posterior lateral urinary bladder abutting the wall. Reproductive: Unremarkable as visualized. ABDOMEN and PELVIS: Intraperitoneal space: Unremarkable. No free air. No significant fluid collection. Bones/joints: Mild degenerative changes in the spine. No acute fracture or subluxation is seen. Soft tissues: Unremarkable. Vasculature: Unremarkable. No abdominal aortic aneurysm. Lymph nodes: Unremarkable. No enlarged lymph nodes. IMPRESSION: 1. There is an approximately 2.9 cm soft tissue density in the right posterior lateral urinary bladder abutting the wall. This is suspicious for neoplasm but is not well evaluated on this single phase image. Consider referral for cystoscopy. 2. The appendix is normal. Bowel loops are nondilated. No acute inflammatory changes are seen involving the bowel. Electronically signed by: Robin Dunham MD 04/19/24 01:55 AM Code Status & VTE Plan VTE Prophylaxis Plan VTE Prophylaxis will be ordered: Yes
[2024-04-19] MEDS ORDERED: ACETAMINOPHEN 325 MG TAB PO PRN (04:45)
[2024-04-19] MEDS ORDERED: NITROGLYCERIN SL 0.4 MG/TAB TAB SL PRN (04:45)
[2024-04-19] MEDS ORDERED: POLYETHYLENE (MIRALAX) 17 GM PACK PO PRN (04:45)
[2024-04-19] MEDS: SODIUM CHLORIDE 0.9% 1,000 ML IV SCH (06:32)
[2024-04-19 08:05] LABS: Basophils # (auto) 0.02 K/uL (0.00-0.20); Basophils % (auto) 0.3 %; Eosinophils # (auto) 0.11 K/uL (0.00-0.50); Eosinophils % (auto) 1.7 %; Hematocrit (blood only) 41.9 % (42.0-52.0); Hemoglobin 14.7 g/dl (14.0-18.0); Immature Granulocytes # (auto) 0.01 K/uL (0.01-0.20); Immature Granulocytes % (auto) 0.2 %; Lymphocytes # (auto) 1.28 K/uL (1.20-3.40); Lymphocytes % (auto) 19.4 %; Mean Corpuscular Hemoglobin 31.1 pg (25.0-34.0); Mean Corpuscular Hgb Conc 35.1 g/dL (32.0-36.0); Mean Corpuscular Volume 88.6 fL (80.0-100.0); Monocytes # (auto) 0.61 K/uL (0.11-0.59); Monocytes % (auto) 9.2 %; Neutrophils # (auto) 4.58 K/uL (1.40-6.50); Neutrophils % (auto) 69.2 %; Platelet Count 177 K/uL (130-400); RDW Coefficient of Variation 12.2 % (11.5-14.5); Red Blood Count 4.73 M/uL (4.70-6.10); White Blood Count 6.61 K/ul (4.8-10.8)
[2024-04-19 08:15] LABS: BUN Creatinine Ratio 23.8 (10-20); Calcium 9.3 mg/dl (8.6-10.3); Creatinine Clr Calc Pharmacy 108.5 ml/min; Potassium 4.2 mmol/L (3.5-5.1)
[2024-04-19] MEDS: LOSARTAN POTASSIUM 25 MG TAB PO SCH (08:18)
[2024-04-19] MEDS: METOPROLOL SUCC 50MG EXT REL TAB PO SCH (08:18)
[2024-04-19] MEDS: ASPIRIN 81 MG CHEW PO SCH (08:18)
[2024-04-19] MEDS: TICAGRELOR 90 MG TAB PO SCH (08:18)
--- NOTE | 2024-04-19 10:21 | Communication Note ---
Date of Service: April 19, 2024 Patient seen and examined Admitted this AM Reports hematuria. Had some possible clot in urine yesterday Denied fever, chill, nausea. Reports some occasional low abd cramping No urinary retention at this time Monitor Hb If continues to pass clots/urinary retention, place little Awaiting Urology eval Other plans as detailed in H/P this AM
[2024-04-19 13:10] LABS: Hematocrit (blood only) 42.4 % (42.0-52.0); Hemoglobin 14.9 g/dl (14.0-18.0)
--- NOTE | 2024-04-19 15:56 | Urology Consultation ---
<Statement entered by Benjy Shoemaker MD - 04/19/24 18:29> CT scan concerning for possible bladder mass, potentially the cause of his hematuria. We will plan on cystoscopy as an outpatient to evaluate further and determine next steps based on this study. As long as he is voiding, can hold off catheter placement. Date of Consultation April 19, 2024 Assessment & Plan (1) Hematuria: Plan 58 year old male admitted with gross hematuria. CT imaging on arrival demonstrated an approximately 2.9 cm soft tissue density in the right posterior lateral urinary bladder abutting the wall. This is suspicious for neoplasm but is not well evaluated on this single phase image. He is afebrile and hemodynamically stable Labs show no leukocytosis, stable hemoglobin, normal renal function UA uninterpretable due to color Voiding spontaneously. At the present time, he is voiding spontaneously. He was bladder scanned for 84 mL which is reassuring that he is emptying. His labs are stable. He is not having any pain or discomfort. Would recommend continuing to monitor ability to void, bladder scan as needed. If patient develops clot obstruction, a large bore Jeong catheter can be placed and manual hand irrigation can be performed as needed. Patient will need cystoscopy for further evaluation of hematuria, however this can be performed as an outpatient. Anticoagulation per primary team. Urology can manage hematuria as needed. Expected clinical course reviewed with patient, all questions were answered. No plan for acute intervention at this time. Okay for discharge from perspective - Will arrange outpatient cystoscopy with our service. Urology will sign-off. Please call with any question/concerns or changes in patient's status. History of Present Illness Attending Physician: Nimisha Jamison MD History of Present Illness 58-year-old male with a past medical history significant for recent non-ST elevated PA status post RCA stent on anticoagulation and tobacco use who presented to the ED with hematuria. Patient reported developing hematuria several days ago which seemed to stop, but then restarted which prompted his arrival in ED. He denies any associated urinary symptoms. Denied any pain or discomfort. CT abd pelvis- 1. There is an approximately 2.9 cm soft tissue density in the right posterior lateral urinary bladder abutting the wall. This is suspicious for neoplasm but is not well evaluated on this single phase image. Consider referral for cystoscopy. 2. The appendix is normal. Bowel loops are nondilated. No acute inflammatory changes are seen involving the bowel. Patient was seen at bedside today. He is awake and sitting in bedside chair on arrival. No acute distress. Denies any pain or discomfort. Reports he is voiding without issue. Still with hematuria and passage of a few small clots. No fevers, chills, nausea, vomiting. He reports intermittent episodes of hematuria over the past 6 months. He denies any associated symptoms. He denies prior urological history. Reports a history of tobacco use for approximately 35 years. Allergies Allergy/AdvReac Type Severity Reaction Status Date / Time No Known Allergies Allergy Unverified 10/21/19 09:55 Home Medications Medication Instructions Recorded Confirmed Type aspirin 81 mg chewable tablet 81 mg PO DAILY 04/19/24 04/19/24 History atorvastatin 40 mg tablet 40 mg PO HS 04/19/24 04/19/24 History losartan 25 mg tablet 25 mg PO DAILY 04/19/24 04/19/24 History metoprolol succinate 50 mg 50 mg PO DAILY 04/19/24 04/19/24 History tablet,extended release 24 hr nitroglycerin 0.4 mg sublingual 0.4 mg sublingual UD PRN Chest Pain 04/19/24 04/19/24 History tablet ticagrelor 90 mg tablet (Brilinta) 90 mg PO BID 04/19/24 04/19/24 History Patient History Social History Smoking Status: Former smoker Hx Alcohol Use: No Hx Substance Use: No Preferred Language: [place] Communication Ability: Effective 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 Beliefs That Will Affect Care: None Current Living Situation: Alone Feels Safe at Home: Yes Safety Concerns: Feels Safe At This Time Review of Systems Review of Systems: All systems reviewed & are unremarkable except as noted in HPI & below Physical Exam Constitutional: no acute distress Respiratory: no respiratory distress and no labored breathing Musculoskeletal: Head/Neck/Chest: normocephalic Skin: No visible rashes or lesions to exposed skin areas Neurologic: moves all extremities and awake Psychiatric: A+Ox3, euthymic affect Results & Data Vital Signs (Past 12 Hours) Vital Signs Temp Pulse Pulse Resp BP BP BP 04/19/24 11:34 36.6 C 54 L 19 119/74 04/19/24 08:01 36.6 C 64 19 162/85 H 04/19/24 08:00 74 04/19/24 08:00 04/19/24 07:36 52 L 18 124/75 04/19/24 07:03 57 L 16 137/90 04/19/24 06:00 61 16 124/78 04/19/24 05:30 75 18 115/84 04/19/24 05:02 55 L 04/19/24 04:59 04/19/24 04:58 59 L 18 141/91 H 04/19/24 03:00 75 16 125/77 04/19/24 02:00 61 16 127/87 Pulse Ox Pulse Ox O2 Del Method O2 Del Method 04/19/24 11:34 94 Room Air 04/19/24 08:01 97 Room Air 04/19/24 08:00 04/19/24 08:00 Room Air 04/19/24 07:36 96 Room Air 04/19/24 07:03 96 Room Air 04/19/24 06:00 97 Room Air 04/19/24 05:30 99 Room Air 04/19/24 05:02 04/19/24 04:59 96 Room Air 04/19/24 04:58 97 Room Air 04/19/24 03:00 96 Room Air 04/19/24 02:00 98 Room Air PG Care Time/CCT Total # of Minutes Spent Total Time Spent with Patient: Total time spent is greater than 50% in coordination of care (as documented) at patient's floor/unit and/or counseling patient: Coding Level of Care Code 59536 IN/OBS CONSULT LVL 4,60M Diagnoses Hematuria R31.9
[2024-04-19 16:25] VITALS: RESP 18
[2024-04-19 19:01] LABS: Hematocrit (blood only) 39.1 % (42.0-52.0); Hemoglobin 13.7 g/dl (14.0-18.0)
[2024-04-19] MEDS: ATORVASTATIN 40 MG TAB PO SCH (20:44)
[2024-04-20 07:13] VITALS: BP 133/84; TEMP 97.9; O2SAT 95
[2024-04-20 07:22] LABS: Hematocrit (blood only) 40.3 % (42.0-52.0); Hemoglobin 14.2 g/dl (14.0-18.0); Mean Corpuscular Hemoglobin 30.8 pg (25.0-34.0); Mean Corpuscular Hgb Conc 35.2 g/dL (32.0-36.0); Mean Corpuscular Volume 87.4 fL (80.0-100.0); Mean Platelet Volume 9.2 fL (9.4-12.4); Platelet Count 160 K/uL (130-400); RDW Coefficient of Variation 12.3 % (11.5-14.5); RDW Standard Deviation 38.9 fL (36.4-46.3); Red Blood Count 4.61 M/uL (4.70-6.10); White Blood Count 5.36 K/ul (4.8-10.8)
[2024-04-20 07:46] LABS: BUN Creatinine Ratio 21.1 (10-20); Creatinine Clr Calc Pharmacy 95.9 ml/min
--- NOTE | 2024-04-20 08:27 | Discharge Summary ---
Date of Service April 20, 2024 Admission HPI Per Admitting Provider 58-year-old male with past med history significant for recent non-ST elevated MA status post RCA stent, tobacco use, family history of premature CAD presents with hematuria. Patient states since last Monday afternoon was having hematuria and seemed stopped yesterday but again today morning started to have hematuria and so came to the ER. Denies any burning micturition. No abdominal pain. Normal bowel movements. Denies any chest pain or shortness of breath. No nausea or vomiting. No headache or dizziness. No runny nose or sore throat. No cough. No fevers. Ambulating okay. Hemodynamics are okay. Patient recently was admitted to [facility] on 03/04/2024 for non-ST elevated MA. His echo was okay. As there was no bed availability at [facility] he was transferred to [facility] on 03/06/2024. Seems patient had cardiac cath on 03/07/2024 and status post right RCA stent and was discharged on 03/08/2024.Patient states he is compliant with his medications. Past medical history. As mentioned above Past surgical history. Cardiac cath and stent placement Social history. Smokes 0.5 packs a day for last 45 years. No alcohol use. No drug use. Family history. History of MA Brother and father. Admission Exam Per Admitting Provider General- Not in distress Head- atraumatic Eyes- PERRL. ENT- oropharynx clear Neck- supple, no JVD. Lungs- clear to auscultation no wheezing or crackles Heart- regular rhythm; no murmur, no gallop. Abdomen- normal bowel sounds, soft, nontender, no distension Extremities- no pretibial edema, no erythema seen Neuro- alert, oriented PERRL, no facial palsy; no dysarthria; moves extremities Principal Diagnosis Hematuria Bladder mass Discharge Exam Constitutional + well hydrated; no acute distress Eyes PERRL, conjunctivae normal, anicteric sclerae ENMT external ear and nose normal, oropharynx normal Respiratory normal respiratory effort, lungs clear to auscultation Cardiovascular Rate/Rhythm: regular rate and regular rhythm Gastrointestinal (Abdomen) normal bowel sounds, soft, nontender, no hepatosplenomegaly Musculoskeletal no cyanosis or clubbing, extremities motor strength 5/5 Neurologic PERRL, EOMI, accommodation nl, no face palsy, no dysarthria Psychiatric A+Ox3, euthymic affect Discharge Data Allergies Allergy/AdvReac Type Severity Reaction Status Date / Time No Known Allergies Allergy Unverified 10/21/19 09:55 Consultations 04/19/24 02:34 ED Decision to Admit Stat 04/19/24 08:00 Consult Urology Routine Ordered Studies 04/18/24 21:47 CT Abd and Pelvis [CT abd pelvis IV con only] Stat Lung bases: Unremarkable. No mass. No consolidation. ABDOMEN: Liver: Unremarkable. No mass. Gallbladder and bile ducts: Unremarkable. No calcified stones. No ductal dilation. Pancreas: Unremarkable. No mass. No ductal dilation. Spleen: Unremarkable. No splenomegaly. Adrenals: Unremarkable. No mass. Kidneys and ureters: Unremarkable. No solid mass. No hydronephrosis. Stomach and bowel: Unremarkable. No obstruction. No mucosal thickening. PELVIS: Appendix: The appendix is normal. Bowel loops are nondilated. No acute inflammatory changes are seen involving the bowel. Bladder: There is an approximately 2.9 cm soft tissue density in the right posterior lateral urinary bladder abutting the wall. Reproductive: Unremarkable as visualized. ABDOMEN and PELVIS: Intraperitoneal space: Unremarkable. No free air. No significant fluid collection. Bones/joints: Mild degenerative changes in the spine. No acute fracture or subluxation is seen. Soft tissues: Unremarkable. Vasculature: Unremarkable. No abdominal aortic aneurysm. Lymph nodes: Unremarkable. No enlarged lymph nodes. IMPRESSION: 1. There is an approximately 2.9 cm soft tissue density in the right posterior lateral urinary bladder abutting the wall. This is suspicious for neoplasm but is not well evaluated on this single phase image. Consider referral for cystoscopy. 2. The appendix is normal. Bowel loops are nondilated. No acute inflammatory changes are seen involving the bowel. Hospital Course (1) Hematuria: 58-year-old male with past med history significant for recent non-ST elevated MA status post RCA stent, tobacco use, family history of premature CAD presents with hematuria. Patient recently was admitted to [facility] on 03/04/2024 for non-ST elevated MA. As there was no bed availability at [facility] he was transferred to [facility] on 03/06/2024. Seems patient had cardiac cath on 03/07/2024 and status post right RCA stent and was discharged on 03/08/2024. Hemoglobin was 15.6 on presentation, after a mild drop on admission has remained stable. Hb is 14.[address] abd/pelvis was notable for Bladder mass 2.9 cm soft tissue density in the right posterior lateral urinary bladder abutting the wall ,suspicious for neoplasm Patient was evaluated by Urology who recommends no inpt procedure but to follow up outpatient for cystoscopy and further management Recent non-ST elevated MA Status post stent to RCA Continue aspirin and Brilinta statin and beta-jarrett Hypertension On losartan and metoprolol succinate Total Time Total Time Spent Total Time Spent (In Minutes): 40 Total Time Includes: Examination of the Patient, Discharge Planning and Medication Reconciliation Discharge Plan Discharge Items Patient Disposition: Home - Self-Care Reason For Visit: HEMATURIA Discharge Diagnosis: Hematuria Bladder mass Condition on Discharge: Good Activity: Resume your previous activity Non-emergency contact: Primary Care Provider and Urologist Call non-emergency contact if: you have any medication questions and your symptoms worsen Follow-up/Referrals: Benjy Shoemaker MD [Physician] - Sal Hernandez MD [Outside Practitioners] - 04/25/24 9:00 am (Date & Time 04/25/2024 9:00 AM Provider: Benjy Penn MD [facility] ) Diet: Heart Healthy and Low Sodium (2gm) Addtl Attending Provider Instructions: Mr Pendleton You came to the hospital complaining of bloody urine. You were evaluated and found to have to have a bladder mass. Urology evaluated and recommend you follow up with them outpatient for further workup and treatment. Please ensure you follow up with your Primary Doctor and Urology. However, if you develop symptoms of anemia such as dizziness, shortness of breath, increased weakness etc as we discussed, please come to the Emergency room. It was a pleasure taking care of you Pending Studies at Discharge: No Stand-Alone Forms: My [employer], Smoking Cessation Medications and DC Order Prescriptions: Continued atorvastatin 40 mg tablet 40 mg PO HS metoprolol succinate 50 mg tablet extended release 24 hr 50 mg PO DAILY losartan 25 mg tablet 25 mg PO DAILY Brilinta 90 mg tablet 90 mg PO BID nitroglycerin 0.4 mg tablet, sublingual 0.4 mg sublingual UD PRN (Reason: Chest Pain) aspirin 81 mg tablet,chewable 81 mg PO DAILY Discharge Orders: Discharge Order (Routine); Ordered 04/20/24 Ordered By: Nimisha Jamison Admission Data Admit Date/Time: 04/19/24 03:28 Attending Provider: Nimisha Jamison I. Admit Provider: Shahid Soto Primary Care Provider: PCP,NO Other Providers: Shahid Soto; Bandar Shine; Elaina Green; Daniel Lay; Kailey Casey; Bea Rojas; Benjy Shoemaker ; Ирина Johnson; Dustin Keith; Christa Gallagher; Chapin Taylor; Jovan Huber Other Interventions: Discharge Summary Assessment (RN) Last Done: 04/20/24 09:04
[2024-04-20 09:29] VITALS: PULSE 65
== END 2024-04-20 09:31 | disposition home or self-care (01) ==
LOC: ED 20:19 → SUATTDRO 04-19 03:28 → INTOOBSV 04-19 03:28 → EDINP 04-19 03:28 → 2N 04-19 04:46